=== PATIENT | male | born 1960 ===

== ENCOUNTER 2018-12-12 07:00 | Day surgery (SDC) | payer MEDICAID ==
[2018-12-12] MEDS ORDERED: PROPOFOL 10 MG/ML VIAL IV ONE (07:01)
[2018-12-12] MEDS ORDERED: LIDOCAINE 2% MDV (20MG/ML) 20ML VIAL IV ONE (07:01)
--- NOTE | 2018-12-13 08:10 | Operative Note ---
OPERATION: COLONOSCOPY with cold forceps polypectomy. PREOPERATIVE DIAGNOSIS: Personal history of colon polyps. POSTOPERATIVE DIAGNOSIS: Sigmoid colon polyp. ESTIMATED BLOOD LOSS: Minimum. SPECIMENS: Sigmoid colon. COMPLICATIONS: None apparent. PREPARATION QUALITY: Excellent. PROCEDURE: After informed consent was obtained from the patient, he was placed in the left lateral decubitus position in the endoscopy suite, sedated and monitored by the department of anesthesia. Digital rectal exam was unremarkable. A well-lubricated [id number] colonoscope was inserted into the rectum and advanced to the cecum. The cecum, cecal bulb, ileocecal valve, and appendiceal orifice were inspected. The cecum was inspected a second time. No abnormalities were noted. The ascending colon, transverse colon, and descending colon were unremarkable. The sigmoid colon revealed a diminutive polyp which was removed with a cold forceps. The remainder of the sigmoid colon and rectum were unrevealing. J-turn views of the anorectum were unremarkable. The endoscope was straightened, the rectal ampulla deflated, and the endoscope was removed. RECOMMENDATIONS: The patient should resume his medications and diet. He will require repeat exam in 5 years pending tissue histology. As always, thank you for allowing me to participate in the healthcare of your patients. CC: Elen BETTS
== END 2018-12-12 09:38 | disposition home or self-care (01) ==
LOC: HOP 07:00
PROVIDERS: ATTEND Internal Medicine Gastroenterology
DX: Z12.11 Encounter for screening for malignant neoplasm of colon (principal); Z86.010 Personal history of colon polyps; K63.5 Polyp of colon; I10 Essential (primary) hypertension; E78.00 Pure hypercholesterolemia, unspecified; M10.9 Gout, unspecified
CPT/HCPCS: 80053; 80061; 83036; 85025